=== PATIENT | female | born 1945 | race Caucasian/White ===

== ENCOUNTER → 2021-05-15 | Outpatient (CLI) | payer MEDICARE | LOC: M.MRI 14:19 | PROVIDERS: ATTEND Physician Assistant | DX: M47.26 Other spondylosis with radiculopathy, lumbar region (principal); M53.3 Sacrococcygeal disorders, not elsewhere classified; G96.191 Perineural cyst; D18.00 Hemangioma unspecified site ==

== ENCOUNTER → 2021-07-05 | Outpatient (CLI) | payer MEDICARE | LOC: M.ULTRA 06-28 13:00 | PROVIDERS: ATTEND Family Medicine | DX: M79.661 Pain in right lower leg (principal); M79.89 Other specified soft tissue disorders; I82.409 Acute embolism and thrombosis of unspecified deep veins of unspecified lower extremity ==

== ENCOUNTER → 2021-07-29 | Outpatient (CLI) | payer MEDICARE ==
--- NOTE | 2021-07-29 15:46 | 2DMMODE ---
[place] [address] 2 D/M-MODE ECHOCARDIOGRAM Name: NATHAN CORNELIUSN Christian Room: [facility]#: [id number] Admission: 07/29/21 Attend Phys: Whit Villagran RN Discharge: Date of : 47 Date of Service: 07/29/21 1546 Report #: [id number] THIS REPORT FOR: cc: Alfred Delacruz MD, Matthew W. MD Holkins, John M. MD [facility] ~ APPROVED REPORT Study performed: 07/29/2021 15:16:35 EXAM: Comprehensive 2D, Doppler, and color-flow Echocardiogram Patient Location: Out-Patient BSA: 1.77 HR: 72 bpm BP: 120/62 mmHg Other Information Study Quality: Good Indications Syncope 2D Dimensions IVSd: 11.46 (7-11mm) LVOT Diam: 20.42 (18-24mm) LVDd: 42.86 mm PWd: 9.34 (7-11mm) Ascending Ao: 31.74 (22-36mm) LVDs: 25.21 (25-40mm) Aortic Root: 25.77 mm Volumes Left Atrial Volume (Systole) LA ESV Index: 14.00 mL/m2 Aortic Valve AoV Peak Shaheen.: 1.20 m/s AO Peak Gr.: 5.80 mmHg LVOT Max P.88 mmHg AO Mean Gr.: 2.82 mmHg LVOT Mean P.07 mmHg LVOT Max V: 1.10 m/s AO V2 VTI: 22.78 cm LVOT Mean V: 0.64 m/s SONIA (VTI): 3.23 cm2 LVOT V1 VTI: 22.44 cm Mitral Valve E/A Ratio: 1.30 [place] [address] 2 D/M-MODE ECHOCARDIOGRAM Name: PHONG [facility]ELIUS [id number] Admission: 07/29/21 Attend Phys: Whit Villagran RN Discharge: Date of : 47 Date of Service: 07/29/21 1546 Report #: [id number] MV Decel. Time: 188.55 ms MV E Max Shaheen.: 0.83 m/s MV PHT: 54.68 ms MVA (PHT): 4.02 cm2 TDI E/Lateral E': 6.38 E/Medial E': 8.30 Medial E' Shaheen.: 0.10 m/s Lateral E' Shaheen.: 0.13 m/s Pulmonary Valve PV Peak Shaheen.: 0.99 m/s PV Peak Gr.: 3.94 mmHg Tricuspid Valve RAP Estimate: 5.00 mmHg TR Peak Gr.: 21.04 mmHg RVSP: 26.04 mmHg PA Pressure: 26.04 mmHg Left Ventricle The left ventricle is normal size. There is normal LV segmental wall motion. There is normal left ventricular wall thickness. Left ventricular systolic function is normal. The left ventricular ejection fraction is within the normal range. LVEF is 60%. The left ventricular diastolic function is normal. Right Ventricle The right ventricle is normal size. The right ventricular systolic function is normal. Atria The left atrium size is normal. The right atrium size is normal. Aortic Valve The aortic valve is normal in structure. Trace aortic regurgitation. There is no aortic valvular stenosis. Mitral Valve The mitral valve is normal in structure. Mild mitral regurgitation. No evidence of mitral valve stenosis. Tricuspid Valve The tricuspid valve is normal in structure. Mild tricuspid regurgitation[place] [address] 2 D/M-MODE ECHOCARDIOGRAM Name: PHONG CORNELIUS Room: [facility]#: [id number] Admission: 07/29/21 Attend Phys: Whit Villagran RN Discharge: Date of : 47 Date of Service: 07/29/21 1546 Report #: [id number] The pulmonary valve is normal in structure. There is no pulmonic valvular regurgitation. Great Vessels The aortic root is normal in size. IVC is normal in size and collapses >50% with inspiration. Pericardium There is no pericardial effusion. <Conclusion> The left ventricle is normal size. There is normal left ventricular wall thickness. Left ventricular systolic function is normal. The left ventricular ejection fraction is within the normal range. LVEF is 60%. The left ventricular diastolic function is normal. The right ventricle is normal size. The left atrium size is normal. The aortic valve is normal in structure. Trace aortic regurgitation. There is no aortic valvular stenosis. The mitral valve is normal in structure. Mild mitral regurgitation. The tricuspid valve is normal in structure. Mild tricuspid regurgitation. IVC is normal in size and collapses >50% with inspiration. There is no pericardial effusion. There is normal LV segmental wall motion. <ELECTRONICALLY SIGNED> By: Jayme Sanders MD, FACC 07/29/21 1546 1546 1546 Jayme Sanders MD, FACC /INF
== END ==
LOC: M.CRD 13:54
PROVIDERS: ATTEND Registered Nurse
DX: I08.1 Rheumatic disorders of both mitral and tricuspid valves (principal); R55 Syncope and collapse